=== PATIENT | male | born 1965 | race Two or more races ===

== ENCOUNTER 2017-05-01 11:07 | Inpatient (IN) | payer MEDICAID ==
[2017-05-01] VITALS (17 sets, daily range): BP systolic 77–98; BP diastolic 46–68
[~2017-05-01] VITALS: Ht 165.1 cm; Wt 70.8 kg
[~2017-05-01 11:07] MED LIST: AMIN30LI2 GT; ATOR10TA GT; DULO60CA45 GT; ERYT200S16 GT; MULT9LIQ6 GT; POTA40LI2 GT; PYRI50TA74 GT; SENN8.6C5 GT; SIME80TA15 GT; UBID30CA11 GT
[2017-05-01 11:35] LABS: BASOPHILS % (AUTO) 0.6 % (0.0-2.0); EOSINOPHILS # (AUTO) 0.4 /CMM (0.0-0.7); EOSINOPHILS % (AUTO) 5.3 % (0.0-6.0); HEMATOCRIT 26 % (39-51); HEMOGLOBIN 8.8 g/dL (13.5-17.5); LYMPHOCYTES # (AUTO) 0.9 /CMM (0.8-4.8); LYMPHOCYTES % (AUTO) 13.7 % (20.0-44.0); MEAN CORPUSCULAR HEMOGLOBIN 30 PG (26.0-33.0); MEAN CORPUSCULAR HGB CONC 34 g/dl (31.0-36.0); MEAN CORPUSCULAR VOLUME 88 fL (80-96); MONOCYTES # (AUTO) 0.5 /CMM (0.1-1.30); MONOCYTES % (AUTO) 7.8 % (2.0-12.0); NEUTROPHILS # (AUTO) 4.9 /CMM (1.8-8.9); NEUTROPHILS % (AUTO) 72.6 % (43.0-81.0); PLATELET COUNT (AUTO) 169 /CMM (150-450); RED BLOOD CELL COUNT(AUTO) 2.91 MIL/uL (4.5-6.0); WHITE BLOOD COUNT (AUTO) 6.7 K/uL (4.3-11.0)
[2017-05-01 11:39] LABS: APPEARANCE,URINE Clear (CLEAR); BILIRUBIN,URINE Negative (NEGATIVE); BLOOD, URINE Trace-intact Ery/uL (NEGATIVE); COLOR,URINE Yellow (YELLOW); KETONES,URINE Negative (NEGATIVE); LEUKOCYTE ESTERASE ,URINE Trace (NEGATIVE); NITRITE, URINE Negative (NEGATIVE); PROTEIN,URINE Negative (NEGATIVE); UGLUCOSE Negative (NEGATIVE); UROBILINOGEN,URINE 0.2 EU/dL (0.2)
[2017-05-01 11:45] LABS: CALCIUM, SERUM 8.6 mg/dL (8.5-10.1); CARBON DIOXIDE 29 mmol/L (21-32); CHLORIDE 105 mmol/L (98-107); CREATININE 1.3 mg/dL (0.6-1.3); GLUCOSE 146 mg/dL (74-106); POTASSIUM 4.4 mmol/L (3.5-5.1); SODIUM SERUM 140 mmol/L (136-145); UREA NITROGEN, BLOOD 39 mg/dL (7-18)
[2017-05-01 11:48] LABS: INR 0.96 (0.87-1.13)
[2017-05-01 11:50] LABS: BACTERIA,URINE Moderate /HPF (None Seen); SQUAMOUS EPITHELIAL CELL,UR Few /HPF (None Seen); YEAST,URINE Hyphal filaments /HPF (None Seen)
[2017-05-01 11:51] LABS: ALANINE AMINOTRANSFERASE 31 U/L (12-78); ALBUMIN 3.3 g/dL (3.4-5.0); ALKALINE PHOSPHATASE 107 U/L (46-116); ASPARTATE AMINOTRANSFERASE 24 U/L (15-37); BILIRUBIN,DIRECT 0.1 mg/dL (0.0-0.2); BILIRUBIN,TOTAL 0.3 mg/dL (0.2-1.0); TOTAL PROTEIN, SERUM 7.4 g/dL (6.4-8.2)
[2017-05-01 11:53] LABS: TROPONIN I < 0.017 ng/mL (0.00-0.056)
[2017-05-01] MEDS ORDERED: SPIR25TA GT (13:06)
[2017-05-01] MEDS ORDERED: GLYC1TAB5 GT (13:06)
[2017-05-01] MEDS ORDERED: BISA10SU8 RC (13:06)
[2017-05-01] MEDS ORDERED: ACET160S GT (13:06)
[2017-05-01] MEDS ORDERED: NA P133E RC (13:06)
[2017-05-01] MEDS ORDERED: IPRA0.2S9 IH ×2 (13:06)
[2017-05-01] MEDS ORDERED: CHLO473M3 MM (13:06)
[2017-05-01] MEDS ORDERED: BENA20TA2 GT (13:06)
[2017-05-01] MEDS ORDERED: ALBU2.5V38 IH ×2 (13:06)
[2017-05-01] MEDS ORDERED: ESOM20CA GT (13:06)
[2017-05-01 16:10] LABS: ABG BASE EXCESS 0.5 mmol/L; ABG PCO2 40.2 mmHg (35.0-45.0); ABG PH 7.414 (7.350-7.450); ABG PO2 157.7 mmHg (75.0-100.0); AaDO2 81.3 mmHg; COHb 0.3 % (0.5-1.5); MetHb 1.4 % (0.0-1.5); O2Hb 96.3 % (94.0-97.0); SITE, ABG Right Brachial; VENT MODE, BG AC 12 550 40% +5
[2017-05-02] VITALS (70 sets, daily range): BP systolic 79–105; BP diastolic 50–72
[2017-05-02 05:15] LABS: BASOPHILS % (AUTO) 0.3 % (0.0-2.0); EOSINOPHILS # (AUTO) 0.3 /CMM (0.0-0.7); HEMATOCRIT 22 % (39-51); HEMOGLOBIN 7.6 g/dL (13.5-17.5); LYMPHOCYTES # (AUTO) 0.7 /CMM (0.8-4.8); LYMPHOCYTES % (AUTO) 12.4 % (20.0-44.0); MEAN CORPUSCULAR HEMOGLOBIN 30 PG (26.0-33.0); MEAN CORPUSCULAR HGB CONC 34 g/dl (31.0-36.0); MEAN CORPUSCULAR VOLUME 88 fL (80-96); MONOCYTES # (AUTO) 0.6 /CMM (0.1-1.30); MONOCYTES % (AUTO) 9.6 % (2.0-12.0); NEUTROPHILS # (AUTO) 4.3 /CMM (1.8-8.9); NEUTROPHILS % (AUTO) 72.7 % (43.0-81.0); PLATELET COUNT (AUTO) 147 /CMM (150-450); RDW COEFFICIENT OF VARIATION 14.8 (11.5-15.0); RED BLOOD CELL COUNT(AUTO) 2.51 MIL/uL (4.5-6.0); WHITE BLOOD COUNT (AUTO) 5.9 K/uL (4.3-11.0)
[2017-05-02 05:37] LABS: CALCIUM, SERUM 8.1 mg/dL (8.5-10.1); PHOSPHORUS 4.2 mg/dL (2.5-4.9); POTASSIUM 3.9 mmol/L (3.5-5.1)
[2017-05-02 05:38] LABS: THYROID STIMULATING HORMONE 1.246 uIU/mL (0.358-3.74)
[2017-05-02 06:10] LABS: EOSINOPHILS % (MANUAL) 5 % (0-4); LYMPHOCYTES % (MANUAL) 13 % (16-48); MONOCYTES % (MANUAL) 4 % (0-11.0); NEUTROPHILS % (MANUAL) 78 (42-76)
[2017-05-02 16:17] LABS: HEMOGLOBIN 7.2 g/dL (13.5-17.5)
[2017-05-03] VITALS (51 sets, daily range): BP systolic 79–128; BP diastolic 50–75
[2017-05-03 04:51] LABS: HEMATOCRIT 21 % (39-51); HEMOGLOBIN 7.1 g/dL (13.5-17.5); LYMPHOCYTES % (AUTO) 15.6 % (20.0-44.0); MEAN CORPUSCULAR HEMOGLOBIN 30 PG (26.0-33.0); MEAN CORPUSCULAR HGB CONC 34 g/dl (31.0-36.0); MEAN CORPUSCULAR VOLUME 88 fL (80-96); MONOCYTES % (AUTO) 10.3 % (2.0-12.0); PLATELET COUNT (AUTO) 121 /CMM (150-450); RDW COEFFICIENT OF VARIATION 15.2 (11.5-15.0); RED BLOOD CELL COUNT(AUTO) 2.36 MIL/uL (4.5-6.0); WHITE BLOOD COUNT (AUTO) 5.1 K/uL (4.3-11.0)
[2017-05-03 04:52] LABS: BASOPHILS % (AUTO) 0.4 % (0.0-2.0); EOSINOPHILS # (AUTO) 0.3 /CMM (0.0-0.7); EOSINOPHILS % (AUTO) 5.7 % (0.0-6.0); LYMPHOCYTES # (AUTO) 0.8 /CMM (0.8-4.8); MONOCYTES # (AUTO) 0.5 /CMM (0.1-1.30); NEUTROPHILS # (AUTO) 3.5 /CMM (1.8-8.9)
[2017-05-03 05:50] LABS: ALBUMIN 2.6 g/dL (3.4-5.0); BILIRUBIN,TOTAL 0.4 mg/dL (0.2-1.0); CALCIUM, SERUM 8.1 mg/dL (8.5-10.1); MAGNESIUM 1.9 mg/dL (1.8-2.4); PHOSPHORUS 3.5 mg/dL (2.5-4.9); POTASSIUM 3.4 mmol/L (3.5-5.1); TOTAL PROTEIN, SERUM 6.2 g/dL (6.4-8.2)
[2017-05-03 06:27] LABS: BAND % (MANUAL) 1 % (0.0-5.0); EOSINOPHILS % (MANUAL) 5 % (0-4); LYMPHOCYTES % (MANUAL) 16 % (16-48); MONOCYTES % (MANUAL) 7 % (0-11.0); NEUTROPHILS % (MANUAL) 71 (42-76)
[2017-05-03 18:23] LABS: HEMOGLOBIN 7.7 g/dL (13.5-17.5)
[2017-05-04] VITALS (44 sets, daily range): BP systolic 98–125; BP diastolic 58–77
[2017-05-04 06:15] LABS: BASOPHILS % (AUTO) 0.2 % (0.0-2.0); EOSINOPHILS # (AUTO) 0.2 /CMM (0.0-0.7); EOSINOPHILS % (AUTO) 5.4 % (0.0-6.0); HEMATOCRIT 21 % (39-51); LYMPHOCYTES # (AUTO) 0.7 /CMM (0.8-4.8); LYMPHOCYTES % (AUTO) 15.7 % (20.0-44.0); MEAN CORPUSCULAR HEMOGLOBIN 29 PG (26.0-33.0); MEAN CORPUSCULAR HGB CONC 34 g/dl (31.0-36.0); MEAN CORPUSCULAR VOLUME 88 fL (80-96); MONOCYTES # (AUTO) 0.4 /CMM (0.1-1.30); NEUTROPHILS % (AUTO) 68.7 % (43.0-81.0); PLATELET COUNT (AUTO) 114 /CMM (150-450); RDW COEFFICIENT OF VARIATION 14.9 (11.5-15.0); RED BLOOD CELL COUNT(AUTO) 2.37 MIL/uL (4.5-6.0); WHITE BLOOD COUNT (AUTO) 4.4 K/uL (4.3-11.0)
[2017-05-04 06:19] LABS: HEMOGLOBIN 6.9 g/dL (13.5-17.5)
[2017-05-04 06:33] LABS: CREATININE 0.9 mg/dL (0.6-1.3); POTASSIUM 3.3 mmol/L (3.5-5.1)
[2017-05-04 10:32] LABS: BAND % (MANUAL) 1 % (0.0-5.0); EOSINOPHILS % (MANUAL) 3 % (0-4); LYMPHOCYTES % (MANUAL) 13 % (16-48); MONOCYTES % (MANUAL) 1 % (0-11.0); NEUTROPHILS % (MANUAL) 82 (42-76)
[2017-05-04 11:57] LABS: RETICULOCYTE COUNT 1.2 % (0.6-2.5)
[2017-05-04 11:58] LABS: INR 1.06 (0.87-1.13); PROTHROMBIN TIME 11.4 SECS (9.5-12.7)
[2017-05-04 11:59] LABS: THYROID STIMULATING HORMONE 2.122 uIU/mL (0.358-3.74); URIC ACID 4.2 mg/dL (2.6-7.2)
[2017-05-04 12:42] LABS: D-DIMER 1.8 mg/L(FEU (0.17-0.50)
[2017-05-05] VITALS (34 sets, daily range): BP systolic 96–139; BP diastolic 63–86
[2017-05-05 04:52] LABS: BASOPHILS % (AUTO) 0.3 % (0.0-2.0); EOSINOPHILS # (AUTO) 0.4 /CMM (0.0-0.7); EOSINOPHILS % (AUTO) 8.2 % (0.0-6.0); HEMATOCRIT 24 % (39-51); LYMPHOCYTES # (AUTO) 0.7 /CMM (0.8-4.8); LYMPHOCYTES % (AUTO) 14.2 % (20.0-44.0); MEAN CORPUSCULAR HEMOGLOBIN 29 PG (26.0-33.0); MEAN CORPUSCULAR HGB CONC 34 g/dl (31.0-36.0); MEAN CORPUSCULAR VOLUME 87 fL (80-96); MONOCYTES # (AUTO) 0.4 /CMM (0.1-1.30); MONOCYTES % (AUTO) 8.6 % (2.0-12.0); NEUTROPHILS # (AUTO) 3.2 /CMM (1.8-8.9); NEUTROPHILS % (AUTO) 68.7 % (43.0-81.0); PLATELET COUNT (AUTO) 114 /CMM (150-450); RDW COEFFICIENT OF VARIATION 15.5 (11.5-15.0); RED BLOOD CELL COUNT(AUTO) 2.73 MIL/uL (4.5-6.0); WHITE BLOOD COUNT (AUTO) 4.7 K/uL (4.3-11.0)
[2017-05-05 05:05] LABS: CALCIUM, SERUM 7.9 mg/dL (8.5-10.1); CREATININE 0.9 mg/dL (0.6-1.3); MAGNESIUM 1.6 mg/dL (1.8-2.4); POTASSIUM 3.3 mmol/L (3.5-5.1)
[2017-05-06] VITALS: BP 119/76
[2017-05-06 04:00] VITALS: BP 114/73
[2017-05-06 07:07] LABS: BASOPHILS % (AUTO) 0.5 % (0.0-2.0); EOSINOPHILS # (AUTO) 0.3 /CMM (0.0-0.7); EOSINOPHILS % (AUTO) 7.8 % (0.0-6.0); HEMATOCRIT 23 % (39-51); LYMPHOCYTES # (AUTO) 0.8 /CMM (0.8-4.8); LYMPHOCYTES % (AUTO) 19.3 % (20.0-44.0); MEAN CORPUSCULAR HEMOGLOBIN 30 PG (26.0-33.0); MEAN CORPUSCULAR HGB CONC 34 g/dl (31.0-36.0); MEAN CORPUSCULAR VOLUME 87 fL (80-96); MONOCYTES # (AUTO) 0.4 /CMM (0.1-1.30); NEUTROPHILS # (AUTO) 2.7 /CMM (1.8-8.9); NEUTROPHILS % (AUTO) 62.4 % (43.0-81.0); PLATELET COUNT (AUTO) 114 /CMM (150-450); RDW COEFFICIENT OF VARIATION 15.6 (11.5-15.0); RED BLOOD CELL COUNT(AUTO) 2.68 MIL/uL (4.5-6.0); WHITE BLOOD COUNT (AUTO) 4.3 K/uL (4.3-11.0)
[2017-05-06 07:20] LABS: CALCIUM, SERUM 7.8 mg/dL (8.5-10.1); CREATININE 0.7 mg/dL (0.6-1.3); POTASSIUM 3.3 mmol/L (3.5-5.1)
[2017-05-06 08:00] VITALS: BP 126/78
[2017-05-06 12:00] VITALS: BP 112/77
[2017-05-06 16:00] VITALS: BP 122/73
[2017-05-06 20:00] VITALS: BP 104/75
[2017-05-07] VITALS: BP_SYST 122; BP_DIAS 72; BP_DIAS 80
[2017-05-07 04:00] VITALS: BP 107/71
[2017-05-07 05:00] VITALS: BP 107/71
[2017-05-07 06:43] LABS: EOSINOPHILS # (AUTO) 0.3 /CMM (0.0-0.7); EOSINOPHILS % (AUTO) 7.4 % (0.0-6.0); HEMATOCRIT 25 % (39-51); HEMOGLOBIN 8.6 g/dL (13.5-17.5); LYMPHOCYTES % (AUTO) 20.7 % (20.0-44.0); MEAN CORPUSCULAR HEMOGLOBIN 30 PG (26.0-33.0); MEAN CORPUSCULAR HGB CONC 34 g/dl (31.0-36.0); MEAN CORPUSCULAR VOLUME 89 fL (80-96); MONOCYTES # (AUTO) 0.5 /CMM (0.1-1.30); NEUTROPHILS # (AUTO) 2.8 /CMM (1.8-8.9); NEUTROPHILS % (AUTO) 60.9 % (43.0-81.0); PLATELET COUNT (AUTO) 114 /CMM (150-450); RDW COEFFICIENT OF VARIATION 15.7 (11.5-15.0); RED BLOOD CELL COUNT(AUTO) 2.86 MIL/uL (4.5-6.0); WHITE BLOOD COUNT (AUTO) 4.6 K/uL (4.3-11.0)
[2017-05-07 06:56] LABS: CALCIUM, SERUM 7.8 mg/dL (8.5-10.1); CREATININE 0.9 mg/dL (0.6-1.3); POTASSIUM 3.6 mmol/L (3.5-5.1)
[2017-05-07 08:00] VITALS: BP 128/84
[2017-05-07 12:00] VITALS: BP 116/77
[2017-05-07 16:00] VITALS: BP 113/82
== END 2017-05-07 16:58 | DRG 130 ==
LOC: ER 11:08 → TELE1 12:54 → ICU 14:39 → TELE1 05-05 22:57
PROVIDERS: ADMIT Nurse Practitioner Acute Care; ATTEND Nurse Practitioner Acute Care
PROC: 05H533Z Insertion of Infusion Device into Right Subclavian Vein, Percutaneous Approach (ICD-10-PCS; principal; 2017-05-01)
PROC: B546ZZA Ultrasonography of Right Subclavian Vein, Guidance (ICD-10-PCS; principal; 2017-05-01)
PROC: 5A1955Z Respiratory Ventilation, Greater than 96 Consecutive Hours (ICD-10-PCS; principal; 2017-05-01)
PROC: 0D7L8ZZ Dilation of Transverse Colon, Via Natural or Artificial Opening Endoscopic (ICD-10-PCS; 2017-05-03)
PROC: 30233N1 Transfusion of Nonautologous Red Blood Cells into Peripheral Vein, Percutaneous Approach (ICD-10-PCS; 2017-05-04)
DX: J95.851 Ventilator associated pneumonia (principal); N17.0 Acute kidney failure with tubular necrosis; R65.21 Severe sepsis with septic shock; A41.9 Sepsis, unspecified organism; G93.41 Metabolic encephalopathy; J15.6 Pneumonia due to other Gram-negative bacteria; J81.1 Chronic pulmonary edema; I95.9 Hypotension, unspecified; Z99.11 Dependence on respirator [ventilator] status; J96.11 Chronic respiratory failure with hypoxia; D69.6 Thrombocytopenia, unspecified; Z93.0 Tracheostomy status; G83.9 Paralytic syndrome, unspecified; R13.10 Dysphagia, unspecified; Z93.1 Gastrostomy status; B94.8 Sequelae of other specified infectious and parasitic diseases; K21.9 Gastro-esophageal reflux disease without esophagitis; H26.9 Unspecified cataract; E78.5 Hyperlipidemia, unspecified; Z79.899 Other long term (current) drug therapy; B37.49 Other urogenital candidiasis; D62 Acute posthemorrhagic anemia; E11.65 Type 2 diabetes mellitus with hyperglycemia; E83.42 Hypomagnesemia; E86.1 Hypovolemia; E87.6 Hypokalemia; I10 Essential (primary) hypertension; K57.10 Diverticulosis of small intestine without perforation or abscess without bleeding; K56.7 Ileus, unspecified; N20.0 Calculus of kidney; K59.31 Toxic megacolon; L89.90 Pressure ulcer of unspecified site, unspecified stage; D63.8 Anemia in other chronic diseases classified elsewhere; B96.89 Other specified bacterial agents as the cause of diseases classified elsewhere; Y83.9 Surgical procedure, unspecified as the cause of abnormal reaction of the patient, or of later complication, without mention of misadventure at the time of the procedure; Y92.129 Unspecified place in nursing home as the place of occurrence of the external cause; K80.20 Calculus of gallbladder without cholecystitis without obstruction
CPT/HCPCS: 31720; 36415; 36600; 71010-TC; 71250-TC; 74020-TC; 80048-TC; 80053-TC; 80061-TC; 80076-TC; 80202-TC; 81000-TC; 82272-TC; 82306; 82728-TC; 82746; 82803-TC; 82962-TC; 83010; 83540-TC; 83605-TC; 83735-TC; 84100-TC; 84439-TC; 84443-TC; 84484-TC; 84550-TC; 85025-TC; 85027-TC; 85045-TC; 85396; 85652-TC; 85730-TC; 86140-TC; 86850-TC; 86921-TC; 87040-TC; 87070-TC; 87081-TC; 87086-TC; 87186-TC; 92611-TC; 93307-TC; 94003-TC; 99082-TC; A4216; A4606; A4623; J1364; J1450; J1815; J1956; J2248; J2543; J2710; J3370; J3480; J7030; J7042; J7050; J7060; P9016-BL; Z7610

== ENCOUNTER 2019-05-12 07:38 | Inpatient (IN) | payer MEDICAID ==
[~2019-05-12] VITALS: Ht 165.1 cm; Wt 74.8 kg
[~2019-05-12 07:38] MED LIST changes: +ACET160S GT; +ALBU2.5V38 IH; -AMIN30LI2 GT; -ATOR10TA GT; +BENA20TA9 GT; +BISA10SU8 RC; +CHLO473M3 MM; -DULO60CA45 GT; -ERYT200S16 GT; +ESOM20CA GT; +GLYC1TAB5 GT; +IPRA0.2S9 IH; -MULT9LIQ6 GT; +NA P133E RC; -POTA40LI2 GT; -PYRI50TA74 GT; +SPIR25TA GT; -UBID30CA11 GT
[2019-05-12 08:00] VITALS: BP_SYST 130; BP_SYST 90; BP_DIAS 64
--- NOTE | 2019-05-12 08:15 | NUR ---
RT NOTE PT. RECEIVED FROM LI WITH FOLLOWING SETTINGS PER EMT TRANSPORT: AC 12 VT 450 FIO2 50% PEEP 0. WITH A PORTEX 7 INFLATED. BREATH SOUNDS COARSE RHONCHI BILATERAL. VENT. PLUGGED INTO RED OUTLET WITH ALARMS SET AND AUDIBLE. AMBU BAG AT BEDSIDE. Addendum: 05/12/19 at 0832 by CRISS HUGHES RT Amended: Links added.
--- NOTE | 2019-05-12 08:20 | NUR ---
BONDERIZER NOTES PT ADMITTED TO ROOM 116/--1. BROUGHT IN BY AMBULANCE ON GURNEY. RT SET UP VENT. PT ASSESSED AND WOUND PICS TAKEN. PT SR ON TELE WITH PAC'S. A/OX4. MOUTHS WORDS IN PRYDEINIG. PT'S GTUBE ASSESSED/FLUSHED/PATENT. IV FLUSHED AND PATENT. SKIN INTACT WITH OLD SACRAL SCAR AND GT SITE WITH GRANULOMA. BOWEL SOUNDS ACTIVE ALL QUADS WITH NOTED ABD DISTENTION. PT ABLE TO MOVE LEGS BUT ARMS FLACCID. SAFETY MEASURES IN PLACE. VSS. WILL CONT TO MONITOR.
--- NOTE | 2019-05-12 08:33 | NUR ---
SPOKE WITH DR. PHILLIP,PER MD PATIENT SHOULD BE UNDER DR. ZAVALA PER PREVIOUS RECORD,DR. ZAVALA NOTIFIED.
--- NOTE | 2019-05-12 08:35 | NUR ---
DR. ZAVALA CALLED AND SAID IT IS NOT HIS PATIENT ANYMORE.
--- NOTE | 2019-05-12 08:36 | NUR ---
DR. PHILLIP MADE AWARE HE WILL PUT ADMITTING ORDERS.
[2019-05-12] MEDS ORDERED: MAGN400O6 PO (09:45)
[2019-05-12] MEDS ORDERED: EPOE1VIA7 IJ (09:45)
[2019-05-12] MEDS ORDERED: DEXT15DR6 OP (09:45)
[2019-05-12] MEDS ORDERED: ESCI5TAB PO (09:45)
[2019-05-12] MEDS ORDERED: DOCU-141 PO (09:45)
[2019-05-12] MEDS ORDERED: LANS30CA56 PO (09:45)
[2019-05-12 10:54] LABS: BASOPHILS % (AUTO) 0.4 % (0.0-2.0); EOSINOPHILS % (AUTO) 0.3 % (0.0-6.0); HEMATOCRIT 42 % (39-51); HEMOGLOBIN 13.2 g/dL (13.5-17.5); LYMPHOCYTES # (AUTO) 0.6 /CMM (0.8-4.8); LYMPHOCYTES % (AUTO) 12.6 % (20.0-44.0); MEAN CORPUSCULAR HGB CONC 31 g/dl (31.0-36.0); MEAN CORPUSCULAR VOLUME 84 fL (80-96); MONOCYTES # (AUTO) 0.6 /CMM (0.1-1.30); MONOCYTES % (AUTO) 11.8 % (2.0-12.0); NEUTROPHILS # (AUTO) 3.6 /CMM (1.8-8.9); NEUTROPHILS % (AUTO) 74.9 % (43.0-81.0); PLATELET COUNT (AUTO) 134 /CMM (150-450); RED BLOOD CELL COUNT(AUTO) 5.03 MIL/uL (4.5-6.0); WHITE BLOOD COUNT (AUTO) 4.7 K/uL (4.3-11.0)
[2019-05-12 12:00] VITALS: BP 118/87
--- NOTE | 2019-05-12 12:20 | NUR ---
WOUND CARE CONSULT: PT SEEN FOR TRISTIAN SCORE OF 11. PT IS VENTILATOR-DEPENDENT AND INCONTINENT OF URINE AND STOOL. PT NOTED TO HAVE SOME SACRAL SCARRING, SCARRING ON LOWER LEGS AND HYPERGRANULATION TISSUE TO G TUBE SITE, PRESENT ON ADMISSION. G TUBE IS CLAMPED AT THIS TIME. RECOMMENDATIONS MADE FOR SKIN PROTECTION. DISCUSSED WITH NURSING STAFF. FIRST STEP LOW AIRLOSS MATTRESS ORDERED WELL Z GUARD. DEFER TO MD FOR G TUBE SITE. WILL SEE PRN. MD IN AGREEMENT WITH PLAN OF CARE. Addendum: 05/12/19 at 1222 by ERON RUSSELL WNDNU Amended: Links added.
[2019-05-12] MEDS ORDERED: Z GUARD REMEDY 2 OZ OINT TP PRN ×2 (12:30→13:00)
[2019-05-12] MEDS ORDERED: ZOLPIDEM TARTRATE 5 MG TABLET PO PRN (13:00)
[2019-05-12] MEDS ORDERED: ACETAMINOPHEN 650 MG/20.3 ML UDC GT PRN (13:00)
[2019-05-12] MEDS ORDERED: HYDROCODONE/APAP 5/325MG 1 EACH TABLET PO PRN (13:00)
[2019-05-12] MEDS ORDERED: ALBUTEROL FS 2.5 MG/3 ML VIAL.NEB IH PRN (13:00)
[2019-05-12] MEDS ORDERED: EPOETIN ALFA (10,000 UNIT) 10,000 UNIT/ML VIAL IJ SCH (13:00)
[2019-05-12] MEDS ORDERED: POLYVINYL ALCOHOL 15 ML BOTTLE EACHEYE PRN (13:00)
[2019-05-12] MEDS ORDERED: IPRATROPIUM NEB FS 0.5 MG/2.5 ML AMPUL.NEB IH PRN (13:00)
[2019-05-12] MEDS ORDERED: MAG HYDROX/AL HYDROX/SIMETH 30 ML UDC PO PRN (13:00)
[2019-05-12] MEDS ORDERED: ACETAMINOPHEN 325 MG TABLET PO PRN (13:00)
[2019-05-12] MEDS ORDERED: MAGNESIUM HYDROXIDE 30 ML UDC PO PRN (13:00)
[2019-05-12] MEDS ORDERED: ONDANSETRON HCL/PF 4 MG/2 ML VIAL IVP PRN (13:00)
[2019-05-12] MEDS: SIMETHICONE 80 MG TAB.CHEW GT SCH ×2 (13:03→21:42)
[2019-05-12] MEDS: IPRATROPIUM NEB FS 0.5 MG/2.5 ML AMPUL.NEB IH SCH ×2 (13:30→19:24)
[2019-05-12] MEDS: ALBUTEROL FS 2.5 MG/3 ML VIAL.NEB IH SCH ×2 (13:30→19:24)
[2019-05-12 16:00] VITALS: BP 121/67
[2019-05-12] MEDS: Z GUARD REMEDY 2 OZ OINT TP SCH (16:44)
[2019-05-12] MEDS: ESOMEPRAZOLE MAGNESIUM 40 MG SUSPDR.PKT GT SCH (16:45)
[2019-05-12] MEDS: IV NS 0.9% 1,000 ML IV PRN (16:45)
[2019-05-12] MEDS: SENNOSIDES 8.6 MG TABLET GT SCH (16:46)
[2019-05-12] MEDS: DOCUSATE SODIUM 100 MG CAPSULE PO SCH (16:46)
[2019-05-12] MEDS ORDERED: IV NS 0.9% 1,000 ML BAG IV SCH (17:00)
--- NOTE | 2019-05-12 19:12 | NUR ---
GAS SINGER END OF SHIFT NOTES PT STABLE ON VENT. NO S/SX OF RESP DISTRESS. PT HAD FREQUENT BM'S. SOFT AND BROWN. ABD DISTENTION. ON IV FLUIDS AT 75ML/HR. SAFETY MEASURES MAINTAINED. ENDORSED TO PM NURSE FOR CLAUDIA.
--- NOTE | 2019-05-12 19:15 | NUR ---
POLYSOMNOGRAPHY TECH NOTE RECEIVED PT AOX3, ABLE TO MOUTH WORDS, TRACH TO VENT ON SETTINGS ORDERED, DENIES PAIN, NO CARDIAC OR RESPIRATORY DISTRESS NOTED, SKIN KEPT CLEAN AND DRY, LEFT HAND #24G, PATENT FLUSHING WELL, SAFETY MAINTAINED AT ALL TIMES, BED IN LOW LOCKED POSITION, CALL LIGHT WITHIN REACH.
[2019-05-12 20:00] VITALS: BP 109/71
[2019-05-12] MEDS: NA PHOS,M-B/NA PHOS,DI-BA 1 EA ENEMA RC SCH (21:42)
[2019-05-13] VITALS (7 sets, daily range): BP systolic 99–128; BP diastolic 42–81
[2019-05-13] MEDS: IPRATROPIUM NEB FS 0.5 MG/2.5 ML AMPUL.NEB IH SCH ×4 (01:03→19:35)
[2019-05-13] MEDS: ALBUTEROL FS 2.5 MG/3 ML VIAL.NEB IH SCH ×4 (01:03→19:35)
[2019-05-13] MEDS: SIMETHICONE 80 MG TAB.CHEW GT SCH ×3 (05:54→21:39)
--- NOTE | 2019-05-13 07:25 | NUR ---
RN OPENING NOTES PT IS ASLEEP IN BED TOLERATING VENT SETTING WELL. REPORT RECEIVED FROM TIRE MOLD TESTER RN. PT SHOW NO SIGNS OF SOB OR PAIN AT PRESENT MOMENT WILL CONTINUE TO MONITOR. ED IS IN LOWEST AND LOCKED POSITION WITH CALL LIGHT IN REACH.
[2019-05-13 07:42] LABS: BASOPHILS % (AUTO) 0.9 % (0.0-2.0); EOSINOPHILS % (AUTO) 2.5 % (0.0-6.0); HEMATOCRIT 41 % (39-51); LYMPHOCYTES # (AUTO) 0.8 /CMM (0.8-4.8); LYMPHOCYTES % (AUTO) 16.7 % (20.0-44.0); MEAN CORPUSCULAR HGB CONC 31 g/dl (31.0-36.0); MEAN CORPUSCULAR VOLUME 84 fL (80-96); MONOCYTES # (AUTO) 0.4 /CMM (0.1-1.30); MONOCYTES % (AUTO) 9.4 % (2.0-12.0); NEUTROPHILS # (AUTO) 3.3 /CMM (1.8-8.9); NEUTROPHILS % (AUTO) 70.5 % (43.0-81.0); PLATELET COUNT (AUTO) 129 /CMM (150-450); RED BLOOD CELL COUNT(AUTO) 4.91 MIL/uL (4.5-6.0); WHITE BLOOD COUNT (AUTO) 4.7 K/uL (4.3-11.0)
[2019-05-13 08:02] LABS: CALCIUM, SERUM 8.7 mg/dL (8.5-10.1); MAGNESIUM 2.4 mg/dL (1.8-2.4); PHOSPHORUS 4.1 mg/dL (2.5-4.9); POTASSIUM 4.2 mmol/L (3.5-5.1)
[2019-05-13] MEDS: DOCUSATE SODIUM 100 MG CAPSULE PO SCH (08:53)
[2019-05-13] MEDS: MAGNESIUM HYDROXIDE 30 ML UDC PO SCH (08:53)
[2019-05-13] MEDS: SENNOSIDES 8.6 MG TABLET GT SCH ×2 (08:53→16:48)
[2019-05-13] MEDS: ESCITALOPRAM OXALATE (10 MG) 10 MG TABLET PO SCH (08:53)
[2019-05-13] MEDS: Z GUARD REMEDY 2 OZ OINT TP SCH (08:54)
[2019-05-13] MEDS: BENAZEPRIL HCL 20 MG TABLET GT SCH (08:54)
[2019-05-13] MEDS: ESOMEPRAZOLE MAGNESIUM 40 MG SUSPDR.PKT GT SCH (09:13)
[2019-05-13] MEDS: DOCUSATE SODIUM LIQ 100 MG/10 ML UDC GT SCH (16:48)
--- NOTE | 2019-05-13 19:23 | NUR ---
RN CLOSING NOTES PT IS RESTING IN BED TOLERATING VENT SETTING. BED IS LOCKD AND IN LOWEST POSITION. REPORT GIVEN TO ENGINE PILOT RN FOR CONTINUATION OF CARE.
--- NOTE | 2019-05-13 20:45 | NUR ---
TELE1 RN NOTES RECEIVED ON BED A/O X3-4,MOUTH WORDS,ON TRACH TO VENT,SETTINGS TOLERATED WELL.WITH GT FOR MEDS,CLAMPED AT THIS TIME,ON SPECIALTY MATTRESS.ABLE TO HELP WITH REPOSITIONING.WITH IVF NS AT 75ML/HE RATE INFUSING VIA IV PUMP ON RIGHT HAND.,CALL LIGHT IN REACH,NEEDS ANTICIPATED.
[2019-05-13] MEDS: NA PHOS,M-B/NA PHOS,DI-BA 1 EA ENEMA RC SCH ×2 (21:39→21:55)
--- NOTE | 2019-05-13 22:00 | NUR ---
TELE1 RN NOTES FLEETS ENEMA NONE ADMINISTERED,PATIENT HAS SOFT TO LOOSE BM.DIAPERED.
[2019-05-13] MEDS: IV NS 0.9% 1,000 ML IV PRN (22:46)
[2019-05-14] VITALS: BP 116/77
[2019-05-14] MEDS: IPRATROPIUM NEB FS 0.5 MG/2.5 ML AMPUL.NEB IH SCH ×4 (00:31→19:33)
[2019-05-14] MEDS: ALBUTEROL FS 2.5 MG/3 ML VIAL.NEB IH SCH ×4 (00:31→19:32)
[2019-05-14 04:00] VITALS: BP 146/63
[2019-05-14] MEDS: SIMETHICONE 80 MG TAB.CHEW GT SCH ×3 (04:37→21:29)
--- NOTE | 2019-05-14 06:28 | NUR ---
TRIM SAWYER NOTES SLEPT WITH INTERVALS,VERBALIZED NEEDS THRU MOUTH WORDS.IV FLUIDS IN PROGRESS,SITE RAMAINS PATENT ON RIGHT HAND.AFEBRILE.FLEETS ENEMA HELD.WITH X2 HUGE AMOUNT OF BOWEL MOVEMENT.WILL ENDORSE TO DAY NURSE FOR CLAUDIA.
--- NOTE | 2019-05-14 07:00 | NUR ---
RN AM SHIFT NOTE PATIENT IN BED, ASLEEP. NO SISGNS OF RESPIRATORY DISTRESS AT THIS TIME. IV PATENT AND INTACT. BED IN LOW POSITION, CALL LIGHT WITHIN REACH. ALARMS CHECKED AND OPERATING WELL. NIGHT NURSE ENDORSED X2 LARGE YELLOW BOWEL MOVEMENTS ON HER SHIFT FORMED SOFT STOOL. AWAITING KUB CBC AND BMP FOR TODAY.
[2019-05-14 07:36] LABS: BASOPHILS % (AUTO) 0.7 % (0.0-2.0); EOSINOPHILS % (AUTO) 3.5 % (0.0-6.0); HEMATOCRIT 42 % (39-51); HEMOGLOBIN 13.1 g/dL (13.5-17.5); LYMPHOCYTES # (AUTO) 0.8 /CMM (0.8-4.8); LYMPHOCYTES % (AUTO) 17.4 % (20.0-44.0); MEAN CORPUSCULAR HGB CONC 32 g/dl (31.0-36.0); MEAN CORPUSCULAR VOLUME 83 fL (80-96); MONOCYTES # (AUTO) 0.7 /CMM (0.1-1.30); MONOCYTES % (AUTO) 14.4 % (2.0-12.0); NEUTROPHILS # (AUTO) 3.1 /CMM (1.8-8.9); PLATELET COUNT (AUTO) 124 /CMM (150-450); RED BLOOD CELL COUNT(AUTO) 5.01 MIL/uL (4.5-6.0); WHITE BLOOD COUNT (AUTO) 4.9 K/uL (4.3-11.0)
[2019-05-14 08:00] VITALS: BP 131/86
[2019-05-14 08:16] LABS: CALCIUM, SERUM 8.4 mg/dL (8.5-10.1); POTASSIUM 4.1 mmol/L (3.5-5.1)
[2019-05-14] MEDS: BENAZEPRIL HCL 20 MG TABLET GT SCH (08:50)
[2019-05-14] MEDS: SENNOSIDES 8.6 MG TABLET GT SCH ×2 (08:51→18:38)
[2019-05-14] MEDS: ESCITALOPRAM OXALATE (10 MG) 10 MG TABLET PO SCH (08:51)
[2019-05-14] MEDS: Z GUARD REMEDY 2 OZ OINT TP SCH (08:52)
[2019-05-14] MEDS: ESOMEPRAZOLE MAGNESIUM 40 MG SUSPDR.PKT GT SCH (09:14)
[2019-05-14] MEDS: DOCUSATE SODIUM LIQ 100 MG/10 ML UDC GT SCH ×2 (09:15→18:37)
[2019-05-14 12:00] VITALS: BP 118/82
--- NOTE | 2019-05-14 12:00 | NUR ---
RN PHYSICAN CONSULT PRIMARY MD REQUEST GI PHYSICIAN CONSULT FOR PATIENT TO ASSESS GI AND INTERPRET XRAY KUB FINDINGS.
[2019-05-14] MEDS: IV NS 0.9% 1,000 ML IV PRN (15:25)
[2019-05-14 16:00] VITALS: BP 122/80
--- NOTE | 2019-05-14 19:00 | NUR ---
RN CLOSING NOTE PATIENT UNABLE TO VERBALIZE WORDS ALERT 3-4. NO GTUBE FEEDING ONLY MEDICATION FINELY CHOPPED DIET ORDERED PER MD. MD AWARE PATIENT IS DISTENDED AND HARD ABDOMEN, NO BOWEL MOVEMENT THIS SHIFT. PREVIOUS BUSINESS OFFICE ASSISTANT ENDORSED X2 EXTRA LARGE BOWEL MOVEMENT, GI CONSULT REQUESTED FOR PATIETN AWAITING VISIT TO CONFIRM KUB RESULTS.
--- NOTE | 2019-05-14 19:25 | NUR ---
TELE1 RN NOTES RECEIVED RESTING COMFORTABLY ON BED A/O X3,ABLE TO VERBALIZE NEEDS THRU MOUTH WORDS.ON TRACH TO VENT,SETTINGS TOLERATED WELL.WITH GT CLAMPED,USED FOR MEDS ONLY.ABDOMEN DISTENDED AND HARD TO THE TOUCH,ON KCI MATTRESS FOR SKIN MANAGEMENT.IVF NS AT 75ML/HR RATE INFUSING VIA IV PUMP ON RIGHT HAND.REPOSITION PER PROTOCOL.CALL LIGHT IN REACH,NEEDS ANTICIPATED.
[2019-05-14 20:00] VITALS: BP_SYST 127; BP_SYST 137; BP_DIAS 79
[2019-05-14] MEDS: NA PHOS,M-B/NA PHOS,DI-BA 1 EA ENEMA RC SCH (21:29)
[2019-05-15] VITALS: BP 134/84
[2019-05-15] MEDS: ALBUTEROL FS 2.5 MG/3 ML VIAL.NEB IH SCH ×4 (01:43→19:59)
[2019-05-15] MEDS: IPRATROPIUM NEB FS 0.5 MG/2.5 ML AMPUL.NEB IH SCH ×4 (01:43→19:59)
[2019-05-15 04:00] VITALS: BP 122/78
[2019-05-15] MEDS: IV NS 0.9% 1,000 ML IV PRN ×2 (04:34→18:40)
[2019-05-15] MEDS: SIMETHICONE 80 MG TAB.CHEW GT SCH ×3 (04:35→21:25)
--- NOTE | 2019-05-15 06:43 | NUR ---
TELE1 RN NOTES HAD BOWEL MOVEMENT,LARGE AMOUNT X3,SOFT BROWN IN COLOR,ABDOMEN REMAINS DISTENDED AND HARD TO THE TOUCH,IVF IN PROGRESS.GT REMAINS CLAMPED,NPO STATUS EXCEPT MEDS ORDERED.DR LOPEZ TO SEE PATIENT TODAY FOR GI CONSULT.IN NO ACUTE DISTRESS.WILL ENDORSE TO DAY NURSE FOR CLAUDIA.
[2019-05-15 07:11] LABS: BASOPHILS % (AUTO) 0.5 % (0.0-2.0); EOSINOPHILS % (AUTO) 2.8 % (0.0-6.0); HEMATOCRIT 43 % (39-51); HEMOGLOBIN 13.7 g/dL (13.5-17.5); LYMPHOCYTES # (AUTO) 0.9 /CMM (0.8-4.8); LYMPHOCYTES % (AUTO) 18.7 % (20.0-44.0); MEAN CORPUSCULAR HGB CONC 32 g/dl (31.0-36.0); MEAN CORPUSCULAR VOLUME 84 fL (80-96); MONOCYTES # (AUTO) 0.8 /CMM (0.1-1.30); NEUTROPHILS # (AUTO) 2.9 /CMM (1.8-8.9); PLATELET COUNT (AUTO) 117 /CMM (150-450); RED BLOOD CELL COUNT(AUTO) 5.17 MIL/uL (4.5-6.0); WHITE BLOOD COUNT (AUTO) 4.7 K/uL (4.3-11.0)
[2019-05-15 07:25] LABS: CALCIUM, SERUM 8.6 mg/dL (8.5-10.1); CREATININE 0.8 mg/dL (0.6-1.3); POTASSIUM 3.8 mmol/L (3.5-5.1)
--- NOTE | 2019-05-15 07:35 | NUR ---
CUSTOMER QUALITY SPECIALIST OPENING NOTES RECEIVED REPORT FROM PM NURSE.PATIENT IN BED. A/O X3,ABLE TO VERBALIZE NEEDS VIA MOUTH WORDS.ON TRACH TO VENT,SETTINGS TOLERATING WELL. GT CLAMPED,USED FOR MEDS ONLY.ABDOMEN DISTENDED AND SOFT TO THE TOUCH,ON KCI MATTRESS FOR SKIN MANAGEMENT.IVF NS AT 75ML/HR .IV ON RIGHT HAND.SAFETY AND ASPIRATION PRECAUTIONS IN PLACE.SRX3.BED ALARM ON.BED IS LOW AND LOCKED POSITION.WILL CONTINUE TO MONITOR.
[2019-05-15 08:00] VITALS: BP 128/90
--- NOTE | 2019-05-15 08:22 | NUR ---
RT NOTE PT RECEIVED ON [facility] VENT ON THE FOLLOWING NOTED SETTINGS. PT SX'D. BREATHING TX GIVEN, NO ADVERSE REACTIONS NOTED AT THIS TIME. PT'S TRACH IS PATENT AND SECURE. VENT IS PLUGGED INTO RED OUTLET AND ALARMS ARE ON AND AUDIBLE. AMBU BAG AND SPARE TRACH ARE AT BEDSIDE. WILL CONT TO MONITOR PT. Addendum: 05/15/19 at 0824 by ADALID GILBERT RT Amended: Links added.
--- NOTE | 2019-05-15 09:00 | NUR ---
SLEEVE BOTTOM FELLER NOTE SEE BY ,UPDATED ABOUT PATIENT CONDITION GOT NEW ORDER FOR REGLAN AND ERYTHROMYCIN.
[2019-05-15] MEDS: SENNOSIDES 8.6 MG TABLET GT SCH ×2 (09:15→17:35)
[2019-05-15] MEDS: BENAZEPRIL HCL 20 MG TABLET GT SCH (09:15)
[2019-05-15] MEDS: DOCUSATE SODIUM LIQ 100 MG/10 ML UDC GT SCH ×2 (09:15→17:35)
[2019-05-15] MEDS: ESCITALOPRAM OXALATE (10 MG) 10 MG TABLET PO SCH (09:15)
[2019-05-15] MEDS: ESOMEPRAZOLE MAGNESIUM 40 MG SUSPDR.PKT GT SCH (09:15)
[2019-05-15] MEDS: MAGNESIUM HYDROXIDE 30 ML UDC PO SCH (09:16)
[2019-05-15] MEDS: Z GUARD REMEDY 2 OZ OINT TP SCH (09:17)
--- NOTE | 2019-05-15 10:02 | NUR ---
MUFFLE OPERATOR NOTE PER PHARMACY BARRIE HAS REACTION WITH LEXAPRO. MADE AWARE.HOLD LEXAPRO.PHARMACY MADE AWARE.D/C LEXAPRO FOR NOW.SPOKE TO DEJAH.
--- NOTE | 2019-05-15 10:25 | NUR ---
[place] HISTORY PROFESSOR OPENING NOTES RECEIVED REPORT FROM PM NURSE.PATIENT IN BED. A/O X3,ABLE TO VERBALIZE NEEDS VIA MOUTH WORDS.ON TRACH TO VENT,SETTINGS TOLERATING WELL. GT CLAMPED,USED FOR MEDS ONLY.ABDOMEN DISTENDED AND SOFT TO THE TOUCH,ON KCI MATTRESS FOR SKIN MANAGEMENT.IVF NS AT 75ML/HR .IV ON RIGHT HAND.SAFETY AND ASPIRATION PRECAUTIONS IN PLACE.SRX3.BED ALARM ON.BED IS LOW AND LOCKED POSITION.WILL CONTINUE TO MONITOR. Addendum: 05/15/19 at 1033 by TINY GAONA RN WRONG TIME [id number]
[2019-05-15] MEDS: ERYTHROMYCIN ETHYLSUCCINATE 200 MG/5 ML SUSPENSION PO SCH ×3 (10:33→21:25)
[2019-05-15] MEDS: METOCLOPRAMIDE HCL 10 MG/2 ML VIAL IV SCH ×3 (10:35→23:11)
[2019-05-15 12:00] VITALS: BP 119/87
[2019-05-15 16:00] VITALS: BP 128/88
--- NOTE | 2019-05-15 19:30 | NUR ---
DEPARTMENTAL SHIPPING CLERK OPENING NOTE RECEIVED PATIENT ASLEEP WITH NO SIGNS OF DISTRESS. PATIENT IS ON VENTILATOR AND TOLERATION WELL. AC IS 12 TV 400, FI02 50%, AND NO PEEP. PATIENT ON THE MONITOR SHOWS SINUS RHYTHM WITH HR IN 60'S. PATIENT HAS IV #20G ON RIGHT HAND WITH NS RUNNING AT 75ML HR. GTUBE PATENT AND FLUSHING. PATIENT HAS PARALYSIS FROM UPPER EXTREMITIES. SKIN IS INTACT. ALL SAFETY PRECAUTIONS ARE APPLIED. BED IS POSITIONED LOW AND LOCKED, BED ALARM ON. WILL CONTINUE TO MONITOR.
--- NOTE | 2019-05-15 19:42 | NUR ---
MOUNTED POLICE OFFICER ESTEPHANIAE ENDORSED TO PM NURSE FOR CLAUDIA.PATIENT IN STABLE CONDITION.
[2019-05-15 20:00] VITALS: BP 140/93
[2019-05-15] MEDS: NA PHOS,M-B/NA PHOS,DI-BA 1 EA ENEMA RC SCH (22:32)
[2019-05-16] VITALS: BP 116/78
[2019-05-16] MEDS: IPRATROPIUM NEB FS 0.5 MG/2.5 ML AMPUL.NEB IH SCH ×4 (00:40→19:58)
[2019-05-16] MEDS: ALBUTEROL FS 2.5 MG/3 ML VIAL.NEB IH SCH ×4 (00:41→19:58)
[2019-05-16] MEDS: METOCLOPRAMIDE HCL 10 MG/2 ML VIAL IV SCH ×4 (03:37→22:55)
[2019-05-16] MEDS: ERYTHROMYCIN ETHYLSUCCINATE 200 MG/5 ML SUSPENSION PO SCH ×4 (03:37→20:07)
[2019-05-16 04:00] VITALS: BP 137/91
[2019-05-16] MEDS: SIMETHICONE 80 MG TAB.CHEW GT SCH ×3 (05:19→20:07)
[2019-05-16] MEDS: IV NS 0.9% 1,000 ML IV PRN ×2 (05:39→20:07)
--- NOTE | 2019-05-16 07:30 | NUR ---
SECURITY INTELLIGENCE ANALYST INITIAL NOTES RECEIVED PT IN BED, A/OX3. TRACH TO VENT SETTINGS MD ORDERED. TOLERATING WELL. ON TELE SR 60'S. PT ASLEEP BUT AROUSES EASILY. RH #20 RUNNING NS AT 75ML/HR. SAFETY MEASURES MAINTAINED. CALL LIGHT IN REACH. WILL CONT TO MONITOR.
--- NOTE | 2019-05-16 07:37 | NUR ---
RN CLOSING NOTE PATIENT ASLEEP IN BED WITH NO SIGNS OF DISTRESS OR ANY SOB. ALL SAFETY PRECAUTIONS APPLIED. ENDORSED PATIENT TO MORNING NURSE.
[2019-05-16 08:00] VITALS: BP 140/96
[2019-05-16 08:36] LABS: BASOPHILS % (AUTO) 0.7 % (0.0-2.0); EOSINOPHILS % (AUTO) 4.1 % (0.0-6.0); HEMATOCRIT 41 % (39-51); HEMOGLOBIN 12.7 g/dL (13.5-17.5); LYMPHOCYTES # (AUTO) 0.7 /CMM (0.8-4.8); LYMPHOCYTES % (AUTO) 20.6 % (20.0-44.0); MEAN CORPUSCULAR HGB CONC 31 g/dl (31.0-36.0); MEAN CORPUSCULAR VOLUME 84 fL (80-96); MONOCYTES # (AUTO) 0.4 /CMM (0.1-1.30); MONOCYTES % (AUTO) 11.2 % (2.0-12.0); NEUTROPHILS # (AUTO) 2.2 /CMM (1.8-8.9); NEUTROPHILS % (AUTO) 63.4 % (43.0-81.0); PLATELET COUNT (AUTO) 111 /CMM (150-450); RED BLOOD CELL COUNT(AUTO) 4.87 MIL/uL (4.5-6.0); WHITE BLOOD COUNT (AUTO) 3.4 K/uL (4.3-11.0)
[2019-05-16 08:52] LABS: CALCIUM, SERUM 8.5 mg/dL (8.5-10.1); CREATININE 0.7 mg/dL (0.6-1.3); POTASSIUM 3.6 mmol/L (3.5-5.1)
[2019-05-16] MEDS: ESOMEPRAZOLE MAGNESIUM 40 MG SUSPDR.PKT GT SCH (09:42)
[2019-05-16] MEDS: BENAZEPRIL HCL 20 MG TABLET GT SCH (09:43)
[2019-05-16] MEDS: DOCUSATE SODIUM LIQ 100 MG/10 ML UDC GT SCH ×2 (09:43→16:40)
[2019-05-16] MEDS: SENNOSIDES 8.6 MG TABLET GT SCH ×2 (09:43→16:40)
[2019-05-16] MEDS: Z GUARD REMEDY 2 OZ OINT TP SCH (09:44)
--- NOTE | 2019-05-16 10:34 | NUR ---
telegraph service clerk notes clarified with dr duarte re: rectal tube to suction order. per , monitor to see if pt has liquid stools.
[2019-05-16 12:00] VITALS: BP 154/97
[2019-05-16] MEDS ORDERED: BISACODYL (5 MG) 5 MG TABLET.DR GT PRN (13:30)
[2019-05-16 16:00] VITALS: BP 154/97
--- NOTE | 2019-05-16 19:00 | NUR ---
FREDERICK MS OPENING NOTES RECEIVED PATIENT IN BED AWAKE ALERT AND ORIENTED X3, ON VENT SETTINGS ORDERED BY MD,RESPIRATIONS EVEN AND UNLABORED WITH EQUAL AND FALL, ON CARDIAC TELE MONITORING SR 87, DENIES ANY PAIN OR DISCOMFORT, GTUBE INTACT AND PATENT, NO RESIDUALS PRESENT, BUE EDEMA NON PITTING PRESENT, ELEVATED WITH PILLOWS IV SITE TO RIGHT HAND #20 INTACT AND PATENT, IVF RUNNING ORDERED, ORIENTED TO STAFF AND CALL LIGHT AND KEPT WITHIN REACH, HEAD OF BED ELEVATED FOR ASPIRATION PRECAUTIONS, ALL NEEDS ATTENDED AT THIS TIME, WILL CONTINUE TO MONITOR, NOTED PATIENT WITH SCRATCH ON FOREHEAD PER PATIENT STATES " I SCRATCHED MYSELF WITH VENT TUBING". SITE CLEANSED, WILL CONTINUE TO MONITOR FOR ANY CHANGES. Addendum: 05/17/19 at 0637 by ANI SOLIS RN CLARIFICATION -NURSE CHEMICAL DEPENDENCY OPENING NOTES
--- NOTE | 2019-05-16 19:06 | NUR ---
NEW CAR GET READY MECHANIC END OF SHIFT NOTES PT IN BED, A/OX3. STABLE ON VENT. ALL NEEDS ATTENDED. ENDORSED TO PM NURSE TO MONITOR FOR BM'S. SAFETY MEASURES IN PLACE. CALL LIGHT IN REACH.
[2019-05-16 20:00] VITALS: BP 135/89
[2019-05-16] MEDS: NA PHOS,M-B/NA PHOS,DI-BA 1 EA ENEMA RC SCH (22:17)
[2019-05-17] VITALS: BP 113/72
[2019-05-17] MEDS: IPRATROPIUM NEB FS 0.5 MG/2.5 ML AMPUL.NEB IH SCH ×4 (01:55→19:12)
[2019-05-17] MEDS: ALBUTEROL FS 2.5 MG/3 ML VIAL.NEB IH SCH ×4 (01:55→19:12)
[2019-05-17] MEDS: ERYTHROMYCIN ETHYLSUCCINATE 200 MG/5 ML SUSPENSION PO SCH ×2 (03:22→08:21)
[2019-05-17 04:00] VITALS: BP 121/73
[2019-05-17] MEDS: SIMETHICONE 80 MG TAB.CHEW GT SCH ×3 (04:31→21:09)
[2019-05-17] MEDS: METOCLOPRAMIDE HCL 10 MG/2 ML VIAL IV SCH ×4 (04:32→22:55)
--- NOTE | 2019-05-17 06:33 | NUR ---
STAFF FORESTER CLOSING NOTES PATIENT IN BED AWAKE ALERT AND ORIENTED X3, ON VENT SETTINGS ORDERED BY MD, AMBU BAG AND SUCTION SET UP AT BEDSIDE, ALARMS AUDIBLE, PLUGGED IN RED OUTLET,RESPIRATIONS EVEN AND UNLABORED WITH EQUAL AND FALL, ON CARDIAC TELE MONITORING SR 65, DENIES ANY PAIN OR DISCOMFORT, GTUBE INTACT AND PATENT, NO RESIDUALS PRESENT, HEAD OF BED ELEVATED FOR ASPIRATION PRECAUTIONS, BUE EDEMA NON PITTING PRESENT, ELEVATED WITH PILLOWS IV SITE TO RIGHT HAND #20 INTACT AND PATENT, IVF RUNNING ORDERED, CALL LIGHT KEPT WITHIN REACH, ALL NEEDS ATTENDED AT THIS TIME, WILL CONTINUE TO MONITOR AND ENDORSE TO NEXT SHIFT, REMAINS COMFORTABLE AT THIS TIME.
[2019-05-17 08:00] VITALS: BP 108/70
--- NOTE | 2019-05-17 08:00 | NUR ---
TELE1/RN AM SHIFT INITIAL NOTES RECEIVED PT SLEEP IN BED, EASILY AROUSED, PT A/O X 3, NO ACUTE DISTRESS NOTED, PT DENIES ANY SYMPTOMS. ON VENTILATOR RATES SET PRESCRIBED, SATURATING @ 100%, RESPIRATIONS EVEN AND UNLABORED, SUCTIONED FOR AIRWAY CLEARANCE. ON TELE MONITORING, SINUS RHYTHM, HR 73. WITH ON GOING IV INFUSION OF NS @ 75CC/HR, SITE PATENT WITH NO S/S OF INFECTION. ABDOMEN FIRM BUT NOT DISTENDED. GT FLUSHED, PATENT, POSITIVE BOWEL SOUNDS, CLAMP. NPO STATUS AT THIS TIME. NOTED WITH NON-PITTING EDEMA ON HIS ARMS. PT IS COMFORTABLE, SCHEDULED AM MEDS TO BE GIVEN. CL WITHIN REACHED AND SAFETY MAINTAINED. ON GOING MONITORING.
[2019-05-17] MEDS: DOCUSATE SODIUM LIQ 100 MG/10 ML UDC GT SCH ×2 (08:20→16:18)
[2019-05-17] MEDS: BENAZEPRIL HCL 20 MG TABLET GT SCH (08:21)
[2019-05-17] MEDS: ESOMEPRAZOLE MAGNESIUM 40 MG SUSPDR.PKT GT SCH (08:21)
[2019-05-17] MEDS: SENNOSIDES 8.6 MG TABLET GT SCH ×2 (08:22→16:19)
[2019-05-17] MEDS: Z GUARD REMEDY 2 OZ OINT TP SCH (08:22)
[2019-05-17] MEDS: IV NS 0.9% 1,000 ML IV PRN (08:46)
[2019-05-17 12:00] VITALS: BP 114/74
[2019-05-17 16:00] VITALS: BP 118/72
[2019-05-17] MEDS: ERYTHROMYCIN STEARATE 250 MG TABLET GT SCH ×2 (16:16→21:18)
--- NOTE | 2019-05-17 19:22 | NUR ---
TELE1/RN AM SHIFT END NOTES ALL NEEDS MET. NO ACUTE CHANGE OF CONDITION NOTED DURING THE SHIFT. PT ENDORSED TO PM NURSE TO CONTINUE CARE. CL WITHIN REACHED AND SAFETY MAINTAINED.
--- NOTE | 2019-05-17 19:40 | NUR ---
ELIGIBILITY ANALYST NOTE: RECEIVED PT ON BED ALERT AND ORIENTED X3, VERBALLY RESPONSIVE. NO APPARENT DISTRESS NOTED. NO COMPLAINTS OF PAIN OR DISCOMFORT AT THIS TIME. ON [facility] VENT, SETTINGS ORDERED. BREATHING EVEN AND UNLABORED WITH NORMAL RESPIRATIONS. ON TELE MONITOR SINUS RHYTHM HR 80 BPM. IV ON RIGHT HAND #20 INTACT AND PATENT, IVF INFUSING WELL. KEPT CLEAN, DRY AND COMFORTABLE. SAFETY AND FALL PRECAUTIONS OBSERVED AND MAINTAINED. CALL LIGHT PLACED WITHIN REACH. WILL CONTINUE TO MONITOR PT
[2019-05-17 20:00] VITALS: BP 121/72
[2019-05-17] MEDS: NA PHOS,M-B/NA PHOS,DI-BA 1 EA ENEMA RC SCH (21:09)
[2019-05-18] VITALS: BP 123/78
[2019-05-18] MEDS: IV NS 0.9% 1,000 ML IV PRN ×2 (00:24→13:11)
[2019-05-18] MEDS: IPRATROPIUM NEB FS 0.5 MG/2.5 ML AMPUL.NEB IH SCH ×4 (01:53→19:23)
[2019-05-18] MEDS: ALBUTEROL FS 2.5 MG/3 ML VIAL.NEB IH SCH ×4 (01:53→19:23)
[2019-05-18 04:00] VITALS: BP 122/74
[2019-05-18] MEDS ORDERED: ERYTHROMYCIN STEARATE 250 MG TABLET ONE (04:02)
[2019-05-18] MEDS: METOCLOPRAMIDE HCL 10 MG/2 ML VIAL IV SCH ×4 (04:06→22:13)
[2019-05-18] MEDS: SIMETHICONE 80 MG TAB.CHEW GT SCH ×3 (04:06→21:11)
[2019-05-18] MEDS: ERYTHROMYCIN STEARATE 250 MG TABLET GT SCH ×4 (04:06→21:11)
--- NOTE | 2019-05-18 05:46 | NUR ---
PATIENT RECEIVED ON TRACH TO VENT WITH SETTINGS OF AC 12, 450 VT, 50%, +0. SUCTIONED FOR MINIMAL, THICK, YELLOW SECRETIONS. GIVEN IN-LINE TREATMENTS WITH NO ADVERSE REACTIONS. AMBU BAG AT BEDSIDE. VENT AND PULSE OXIMETER ALARMS AUDIBLE AND VISIBLE. VENT IS PLUGGED INTO RED OUTLET. Addendum: 05/18/19 at 0547 by KORY ARELLANO RT Amended: Links added.
--- NOTE | 2019-05-18 06:34 | NUR ---
STRIPPER AND OPAQUER APPRENTICE NOTE: NO CHANGES NOTED THROUGHOUT THE SHIFT. NO APPARENT DISTRESS NOTED. DENIES PAIN AND DISCOMFORT AT THIS TIME. ON [facility] VENT, SETTINGS ORDERED. NO SOB NOTED. GT INTACT AND PATENT, FLUSHING WELL. SINUS RHYTHM ON TELE MONITOR HR 79BPM. IV ON RIGHT HAND #20 INTACT AND PATENT, IVF INFUSING WELL. KEPT CLEAN, DRY AND COMFORTABLE. ALL NEEDS ATTENDED. WILL ENDORSE TO DAY SHIFT RN FOR CONTINUITY OF CARE
[2019-05-18 07:48] LABS: BASOPHILS % (AUTO) 0.6 % (0.0-2.0); EOSINOPHILS % (AUTO) 2.5 % (0.0-6.0); HEMATOCRIT 42 % (39-51); LYMPHOCYTES # (AUTO) 0.7 /CMM (0.8-4.8); LYMPHOCYTES % (AUTO) 16.7 % (20.0-44.0); MEAN CORPUSCULAR HGB CONC 31 g/dl (31.0-36.0); MEAN CORPUSCULAR VOLUME 84 fL (80-96); MONOCYTES # (AUTO) 0.3 /CMM (0.1-1.30); MONOCYTES % (AUTO) 6.8 % (2.0-12.0); NEUTROPHILS # (AUTO) 3.3 /CMM (1.8-8.9); NEUTROPHILS % (AUTO) 73.4 % (43.0-81.0); PLATELET COUNT (AUTO) 114 /CMM (150-450); RED BLOOD CELL COUNT(AUTO) 4.98 MIL/uL (4.5-6.0); WHITE BLOOD COUNT (AUTO) 4.4 K/uL (4.3-11.0)
--- NOTE | 2019-05-18 07:55 | NUR ---
ELE1/RN AM SHIFT INITIAL NOTES RECEIVED PT AWAKE IN BED, PT A/O X 3, NO ACUTE DISTRESS NOTED, PT DENIES ANY SYMPTOMS. ON VENTILATOR RATES SET PRESCRIBED, SATURATING @ 100%, RESPIRATIONS EVEN AND UNLABORED, SUCTIONED FOR AIRWAY CLEARANCE. ON TELE MONITORING, SINUS RHYTHM, HR 82. WITH ON GOING IV INFUSION OF NS @ 75CC/HR, SITE PATENT WITH NO S/S OF INFECTION. ABDOMEN NOT DISTENDED. GT FLUSHED, PATENT, POSITIVE BOWEL SOUNDS, CLAMP. NPO EXCEPT STATUS AT THIS TIME. PT IS COMFORTABLE, SCHEDULED AM MEDS TO BE GIVEN. CL WITHIN REACHED AND SAFETY MAINTAINED. ON GOING MONITORING.
[2019-05-18 08:00] VITALS: BP 105/68
[2019-05-18 08:09] LABS: CALCIUM, SERUM 8.3 mg/dL (8.5-10.1); CREATININE 1.2 mg/dL (0.6-1.3); POTASSIUM 3.6 mmol/L (3.5-5.1)
[2019-05-18] MEDS ORDERED: PEG 3350/NA SULF,BICARB,CL/KCL 4,000 ML BOTTLE GT ONE (08:30)
--- NOTE | 2019-05-18 08:36 | NUR ---
TELE1/RN ROUNDS - DR. LOPEZ UPDATED PT'S CONDITION. PT SEEN & EXAMINED BY DR. LOPEZ. WITH VERBAL ORDERS RECEIVED TO GIVE 1 GALLON OF GOLYTELY (GIVE 200CC EVERY HOUR UNTIL CONSUMED), RE-START FEEDING, BUGGYMAN CONSULT (FOR FEEDING) AND TO PREPARE GT GAUGE [address] G-TUBE IN AM. ORDER NOTED AND CARRIED OUT.
[2019-05-18] MEDS: ESOMEPRAZOLE MAGNESIUM 40 MG SUSPDR.PKT GT SCH (08:45)
[2019-05-18] MEDS: MAGNESIUM HYDROXIDE 30 ML UDC PO SCH (08:45)
[2019-05-18] MEDS: DOCUSATE SODIUM LIQ 100 MG/10 ML UDC GT SCH ×2 (08:45→16:04)
[2019-05-18] MEDS: SENNOSIDES 8.6 MG TABLET GT SCH ×2 (08:45→16:04)
--- NOTE | 2019-05-18 08:45 | NUR ---
TELE1/RN LOW BLOOD GLUCOSE RECEIVED CALL [facility] RESULT FOR BLOOD GLUCOSE 41, CONTACTED DR. PHILLIP, VERBAL ORDERS RECEIVED TO GIVE PT 1 BOX OF OJ THEN RE-CHECK BLOOD GLUCOSE IN 1 HOUR. ORDER NOTED AND CARRIED. PT HAS NO SIGNS OF HYPOGLYCEMIA. MONITORING. Addendum: 05/18/19 at 1949 by GABI HUMPHREY RN ADDENDUM: BLOOD GLUCOSE RE-CHECKED AFTER GIVEN OJ, 151, NO S/S OF HYPERGLYCEMIA. MONITORING CONTINUED.
[2019-05-18] MEDS: BENAZEPRIL HCL 20 MG TABLET GT SCH (08:46)
[2019-05-18] MEDS: Z GUARD REMEDY 2 OZ OINT TP SCH (08:46)
[2019-05-18 12:00] VITALS: BP 102/68
[2019-05-18 16:00] VITALS: BP 116/74
--- NOTE | 2019-05-18 19:30 | NUR ---
BURGLAR ALARM SUPERINTENDENT NOTE: RECEIVED PT ON BED ALERT AND ORIENTED X3, VERBALLY RESPONSIVE. NO APPARENT DISTRESS NOTED. NO COMPLAINTS OF PAIN OR DISCOMFORT AT THIS TIME. ON [facility] VENT, SETTINGS ORDERED. BREATHING EVEN AND UNLABORED WITH NORMAL RESPIRATIONS. ON TELE MONITOR SINUS RHYTHM HR 80 BPM. GT INTACT AND PATENT, FLUSHING WELL. IV ON RIGHT HAND #20 INTACT AND PATENT, IVF INFUSING WELL. KEPT CLEAN, DRY AND COMFORTABLE. SAFETY AND FALL PRECAUTIONS OBSERVED AND MAINTAINED. CALL LIGHT PLACED WITHIN REACH. WILL CONTINUE TO MONITOR PT
--- NOTE | 2019-05-18 19:49 | NUR ---
TELE1/RN AM SHIFT END NOTES ALL NEEDS MET. PT TOLERATED THE DIET RESUMED, TO COMPLETE GOLYTELY. PT ENDORSED TO PM NURSE TO CONTINUE CARE. CL WITHIN REACHED AND SAFETY MAINTAINED.
--- NOTE | 2019-05-18 19:50 | NUR ---
RT Pt received trached on the vent with noted settings. Pt is awake and responds to stimuli when sx'd. Vent alarms are set and audible. Vent is plugged into red outlet. HHN tx given with no adverse reactions. No respiratory distress noted at this time. Addendum: 05/18/19 at 1950 by ALLISON STONE RT Amended: Links added.
[2019-05-18 20:00] VITALS: BP 116/76
[2019-05-18] MEDS: NA PHOS,M-B/NA PHOS,DI-BA 1 EA ENEMA RC SCH (21:07)
--- NOTE | 2019-05-18 21:30 | NUR ---
RESEARCH ANIMAL ATTENDANT NOTE: PATIENT REFUSED FLEET ENEMA, PER PT HE ONLY WANTS GOLYTLE. EXPLAINED RISKS AND BENEFITS BUT PT STILL REFUSED. WILL CONTINUE TO MONITOR PT.
[2019-05-19] VITALS: BP_SYST 140; BP_DIAS 81; BP_DIAS 87
[2019-05-19] MEDS: ALBUTEROL FS 2.5 MG/3 ML VIAL.NEB IH SCH ×4 (01:57→19:20)
[2019-05-19] MEDS: IPRATROPIUM NEB FS 0.5 MG/2.5 ML AMPUL.NEB IH SCH ×4 (01:57→19:20)
[2019-05-19] MEDS: IV NS 0.9% 1,000 ML IV PRN (02:25)
[2019-05-19] MEDS: ERYTHROMYCIN STEARATE 250 MG TABLET GT SCH ×4 (03:43→20:35)
[2019-05-19] MEDS: METOCLOPRAMIDE HCL 10 MG/2 ML VIAL IV SCH ×4 (03:43→23:13)
[2019-05-19] MEDS ORDERED: ERYTHROMYCIN STEARATE 250 MG TABLET ONE (03:57)
[2019-05-19 04:00] VITALS: BP 142/85
[2019-05-19] MEDS: SIMETHICONE 80 MG TAB.CHEW GT SCH ×3 (04:46→20:36)
[2019-05-19 06:48] LABS: BASOPHILS % (AUTO) 0.7 % (0.0-2.0); EOSINOPHILS % (AUTO) 3.9 % (0.0-6.0); HEMATOCRIT 41 % (39-51); LYMPHOCYTES # (AUTO) 0.7 /CMM (0.8-4.8); LYMPHOCYTES % (AUTO) 19.9 % (20.0-44.0); MEAN CORPUSCULAR HGB CONC 31 g/dl (31.0-36.0); MEAN CORPUSCULAR VOLUME 83 fL (80-96); MONOCYTES # (AUTO) 0.5 /CMM (0.1-1.30); MONOCYTES % (AUTO) 14.8 % (2.0-12.0); NEUTROPHILS # (AUTO) 2.3 /CMM (1.8-8.9); NEUTROPHILS % (AUTO) 60.7 % (43.0-81.0); PLATELET COUNT (AUTO) 105 /CMM (150-450); RED BLOOD CELL COUNT(AUTO) 4.98 MIL/uL (4.5-6.0); WHITE BLOOD COUNT (AUTO) 3.7 K/uL (4.3-11.0)
--- NOTE | 2019-05-19 06:54 | NUR ---
RESTAURANT WORKER NOTE: NO CHANGES NOTED THROUGHOUT THE SHIFT. NO APPARENT DISTRESS NOTED. DENIES PAIN AND DISCOMFORT AT THIS TIME. ON [facility] VENT, SETTINGS ORDERED. NO SOB NOTED. GT INTACT AND PATENT, FLUSHING WELL. SINUS RHYTHM ON TELE MONITOR HR 68 BPM. IV ON RIGHT HAND #20 INTACT AND PATENT, IVF INFUSING WELL. KEPT CLEAN, DRY AND COMFORTABLE. ALL NEEDS ATTENDED. WILL ENDORSE TO DAY SHIFT RN FOR CONTINUITY OF CARE
[2019-05-19 07:04] LABS: CALCIUM, SERUM 8.4 mg/dL (8.5-10.1); CREATININE 1.1 mg/dL (0.6-1.3); POTASSIUM 3.7 mmol/L (3.5-5.1)
--- NOTE | 2019-05-19 07:44 | NUR ---
RT Pt received trached on the vent with noted settings. Pt is awake and alert. Vent alarms are set and audible with BVM by bedside. Vent is plugged into red outlet. No respiratory distress noted at this time. Addendum: 05/19/19 at 1913 by NATHAN LANG RT Amended: Links added.
[2019-05-19 08:00] VITALS: BP 156/91
--- NOTE | 2019-05-19 08:00 | NUR ---
TELE1/RN AM SHIFT INITIAL NOTES RECEIVED PT AWAKE IN BED, PT A/O X 3, NO ACUTE DISTRESS NOTED, PT DENIES ANY SYMPTOMS. ON VENTILATOR RATES SET PRESCRIBED, SATURATING @ 100%, RESPIRATIONS EVEN AND UNLABORED, SUCTIONED FOR AIRWAY CLEARANCE. ON TELE MONITORING, SINUS RHYTHM, HR 71. WITH ON GOING IV INFUSION OF NS @ 75CC/HR, SITE PATENT WITH NO S/S OF INFECTION. ABDOMEN SOFT, GT FLUSHED (USE FOR MEDS), PATENT, POSITIVE BOWEL SOUNDS, CLAMP. PT ON 2GM FINELY CHOPPED DIET. PT IS COMFORTABLE, SCHEDULED AM MEDS TO BE GIVEN. CL WITHIN REACHED AND SAFETY MAINTAINED. ON GOING MONITORING.
[2019-05-19] MEDS: DOCUSATE SODIUM LIQ 100 MG/10 ML UDC GT SCH ×2 (08:04→16:32)
[2019-05-19] MEDS: SENNOSIDES 8.6 MG TABLET GT SCH ×2 (08:04→16:32)
[2019-05-19] MEDS: BENAZEPRIL HCL 20 MG TABLET GT SCH (08:05)
[2019-05-19] MEDS: ESOMEPRAZOLE MAGNESIUM 40 MG SUSPDR.PKT GT SCH (08:05)
[2019-05-19] MEDS: Z GUARD REMEDY 2 OZ OINT TP SCH (08:05)
--- NOTE | 2019-05-19 09:19 | NUR ---
WOUND CARE CONSULT: PT SEEN FOR DRY LESIONS/SCRATCHES TO FOREHEAD. DEFER TO MD. NO SIGN OF INFECTION NOTED. ALL SKIN PROTECTION RECOMMENDATIONS DISCUSSED WITH NURSING STAFF. [facility] WILL SEE PRN. Addendum: 05/19/19 at 0920 by ERON RUSSELL WNDNU Amended: Links added.
--- NOTE | 2019-05-19 09:30 | NUR ---
TELE1/RN ROUNDS - DR. LOPEZ UPDATED PT'S CONDITION. PT SEEN & EXAMINED BY DR. LOPEZ. MD CHANGE PT'S G-TUBE AND RECEIVED WITH VERBAL ORDERS RECEIVED TO D/C PM ENEMA, ORDER NOTED AND CARRIED.
[2019-05-19 12:00] VITALS: BP 120/81
--- NOTE | 2019-05-19 12:25 | NUR ---
TELE1/RN ROUNDS - Elmo GRIFFIN DNP UPDATED PT'S CONDITION. PT SEEN & EXAMINED BY DNP. WITH VERBAL ORDER TO D/C CONTINUOUS IV FLUIDS OF NS 2 75CC/HR, ORDER NOTED AND CARRIED OUT.
[2019-05-19 16:00] VITALS: BP 136/80
--- NOTE | 2019-05-19 19:30 | NUR ---
MIDDLEWARE DEVELOPER NOTE PATIENT REPORT GIVEN BEDSIDE. PATIENT IN BED SITTING UP NO S/S OF RESP DISTRESS. PATIENT A/O X 3 PATIENT DENIES PAIN/ SOB/ CHEST PAIN. PATIENT URINATED AND DIAPER CHANGED. PATIENT HR ON THE MONITOR SR. NO S/S OR ACUTE DISTRESS NOTED. PATIENT MADE AWARE OF D/C PLANS. PATIENT REPOSITIONED FOR COMFORT. SAFETY PRECAUTIONS IN PLACE. GTUBE PATENT AND CLAMPED. RN WILL CONTINUE TO MONITOR.
--- NOTE | 2019-05-19 19:37 | NUR ---
TELE1/RN AM SHIFT END NOTES ALL NEEDS MET. NO ACUTE CHANGE OF CONDITION NOTED DURING THE SHIFT, PT ENDORSED TO PM NURSE TO CONTINUE CARE. CL WITHIN REACHED AND SAFETY MAINTAINED.
--- NOTE | 2019-05-19 19:42 | NUR ---
GREENS PICKER NOTE D/C ORDERS PLACED BY . REPORT GIVEN TO YADIEL TYSON AT [facility]. FAMILY AND NEXT OF KIN TEDDY NOTIFIED OF PATIENT D/C AND LOGISTICS COORDINATOR TIME AT 8PM.
[2019-05-19 20:00] VITALS: BP_SYST 140; BP_SYST 143; BP_DIAS 87
--- NOTE | 2019-05-19 21:03 | NUR ---
VALET MANAGER NOTE PATIENT TRANSPORTATION PICKUP CHANGED TO 233O. YADIEL TYSON AT [facility] NOTIFIED.
--- NOTE | 2019-05-19 23:50 | NUR ---
LABORATORY SCIENTIST NOTE TRANSPORTATION [facility] ARRIVED ON THE UNIT. REPORT GIVEN TO [facility] V/S STABLE WNL. [facility] PATIENT TOLERATED VENT TRANSFER NO S/SOF ACUTE RESP DISTRESS.O2 SATURATION 100%. TRANSFER OF CARE GIVEN OVER TO TRANSPORT. PATIENT TAKEN OUT OF UNIT.
[2019-05-20] MEDS ORDERED: ALBUTEROL FS 2.5 MG/3 ML VIAL.NEB ONE (13:27)
== END 2019-05-19 23:55 | DRG 388 ==
LOC: TELE1 07:39
PROVIDERS: ADMIT Family Medicine; ATTEND Hospitalist
PROC: 5A1955Z Respiratory Ventilation, Greater than 96 Consecutive Hours (ICD-10-PCS; principal; 2019-05-12)
DX: K56.41 Fecal impaction (principal); G82.50 Quadriplegia, unspecified; Z99.11 Dependence on respirator [ventilator] status; G93.40 Encephalopathy, unspecified; J96.11 Chronic respiratory failure with hypoxia; E11.9 Type 2 diabetes mellitus without complications; I10 Essential (primary) hypertension; K21.9 Gastro-esophageal reflux disease without esophagitis; D63.8 Anemia in other chronic diseases classified elsewhere; E78.5 Hyperlipidemia, unspecified; Z93.1 Gastrostomy status; R13.10 Dysphagia, unspecified
CPT/HCPCS: 31720; 36415; 71045-TC; 74018; 80048-TC; 80061-TC; 82947-TC; 82962-TC; 83735-TC; 84100-TC; 85025-TC; 87081-TC; 92526; 92611-TC; 94002-TC; 94003-TC; 94760-TC; 94762-TC; A7526; G0378; J2765; J7030